=== PATIENT | female | born 1990 ===

== ENCOUNTER 2021-02-22 12:52 | Outpatient (REF) | payer OTHER, SELFPAY ==
[2021-02-22 13:54] LABS: Abs Immature Grans 0.02 10^3/uL (0.0-0.06); Absolute Basophil Count 0.05 10^3/uL (0.0-0.2); Absolute Eosinophil Count 0.14 10^3/uL (0.0-0.7); Absolute Lymphocyte Count 2.34 10^3/uL (1.2-3.4); Absolute Monocyte Count 0.65 10^3/uL (0.1-0.8); Absolute Neutrophil Count 3.47 10^3/uL (1.2-6.7); Basophils % 0.7; Eosinophils % 2.1; HCT 40.1 % (36.0-46.0); HGB 13.8 g/dL (11.2-15.7); Immature Grans % 0.3; Lymphocytes % 35.1; MCH 29.7 pg (27.0-33.0); MCHC 34.4 % (32.0-36.0); MCV 86.2 fL (80-95); MPV 12.1 fL (8.0-11.0); Monocytes % 9.7; Neutrophils % 52.1; Nucleated RBC 0 %; Platelet Count 222 10^3/uL (130-400); RBC 4.65 10^6/uL (3.93-5.22); RDW 11.9 % (11.7-14.6); RDW-SD 37.5 fL; WBC 6.67 10^3/uL (4.4-10.8)
[2021-02-22 14:12] LABS: Iron 118 ug/dL (50-170); Total Iron Binding Capacity 353 ug/dL (250-450); Transferrin Sat 33 % (15-50)
[2021-02-22 14:14] LABS: Hemoglobin A1C 5.3 % (<5.7)
[2021-02-22 14:47] LABS: ALT 28 U/L (14-59); AST 17 U/L (15-37); Albumin 3.3 g/dL (3.4-5.0); Alkaline Phosphatase 67 U/L (46-116); Anion Gap 6.7 mmol/L (3-11); BUN 7 mg/dL (7-18); Bilirubin, Total 0.3 mg/dL (0.2-1.0); CO2 27.3 mmol/L (21.0-32.0); CREATININE 0.7 mg/dL (0.55-1.02); Calcium 8.7 mg/dL (8.5-10.1); Chloride 106 mmol/L (98-107); Ferritin 40 ng/mL (8-252); Glucose 110 mg/dL (74-106); Potassium 4.1 mmol/L (3.5-5.1); Sodium 140 mmol/L (136-145); Total Protein 6.9 g/dL (6.4-8.2); Vitamin B12 297 pg/mL (193-986)
[2021-02-22 17:07] LABS: C-Reactive Protein 0.82 mg/dL (0.0-0.3); TSH (W/Ref FT4) 0.76 uIU/mL (0.36-3.74)
[2021-02-23 10:58] LABS: HCG Qual (Serum) Negative
[2021-02-23 14:59] LABS: ANA Interpretation Positive (Negative); ANA Titer Pattern 1:320 Speckled
== END 2021-02-22 12:53 | disposition home or self-care (01) ==
LOC: NCHCN 12:52
PROVIDERS: PCP Nurse Practitioner Community Health; Visit Provider Nurse Practitioner Community Health
DX: Z32.00 Encounter for pregnancy test, result unknown (principal); R63.5 Abnormal weight gain; R25.1 Tremor, unspecified; N91.2 Amenorrhea, unspecified; E63.9 Nutritional deficiency, unspecified
CPT/HCPCS: 80053; 82607; 82728; 83036; 83540; 83550; 84443; 84703; 85025; 86038; 86140

== ENCOUNTER 2021-03-12 15:48 | Outpatient (REF) | payer OTHER, SELFPAY ==
[2021-03-13 19:51] LABS: Rheumatoid Factor <8.6 IU/mL (<12.0)
[2021-03-14 09:17] LABS: Cyclic Citrullinated Peptide <2.5 U/mL (<5.0)
[2021-03-15 13:01] LABS: SS-B (La) Ab, IgG 8.7 Units (<20.0)
== END 2021-03-12 15:49 | disposition home or self-care (01) ==
LOC: NCHCN 15:48
PROVIDERS: PCP Nurse Practitioner Community Health; Visit Provider Nurse Practitioner Community Health
DX: R79.89 Other specified abnormal findings of blood chemistry (principal); M25.59 Pain in other specified joint; R25.1 Tremor, unspecified
CPT/HCPCS: 86200; 86235; 86431